=== PATIENT | female | born 1950 | race Caucasian/White ===

== ENCOUNTER → 2021-09-05 12:15 | Outpatient (CLI) | payer MEDICARE, SELFPAY ==
--- NOTE | 2021-09-05 12:21 | DI.RAD.S_ITS ---
PROCEDURE: XR ANKLE RT MIN 3V, 09/05/2021, 12:17 XR ANKLE LT MIN 3V, 09/05/2021, 12:17 INDICATIONS: right ankle pain TECHNIQUE: Three views of the right and three views of the left ankle were obtained. COMPARISON: None. FINDINGS: Bones: No acute fractures or dislocations. On the right there is a hook like projection from the distal fibular tip likely an osteophyte. No fracture or dislocation. Ankle mortise is normally aligned. No suspicious bony lesions. On the left there is also an osteophyte of the distal fibular tip. No fracture or dislocation. Ankle mortise is aligned. No suspicious bony lesions. Soft tissues: No tibiotalar joint effusion. Achilles tendon appears normal. IMPRESSION: 1. No acute abnormality of the ankles. 2. Osteophytes of the distal fibular tips bilaterally , otherwise no significant degenerative changes. Dictated by: Jeff Brar M.D. on 09/05/2021 at 12:38 Approved by: Jeff Brar M.D. on 09/05/2021 at 12:42
== END ==
PROVIDERS: Referring Provider Nurse Practitioner Family; Visit Provider Nurse Practitioner Family
DX: S96.912A Strain of unspecified muscle and tendon at ankle and foot level, left foot, initial encounter (principal); S96.911A Strain of unspecified muscle and tendon at ankle and foot level, right foot, initial encounter; M25.771 Osteophyte, right ankle
CPT/HCPCS: 73610